=== PATIENT | male | born 1930 | race Caucasian/White ===

== ENCOUNTER 2019-04-08 16:18 | Inpatient (IN) | payer MEDICARE ==
[~2019-04-08] VITALS: Ht 177.8 cm; Wt 55.5 kg
--- NOTE | 2019-04-08 17:40 | NUR ---
URINE TO LAB
[2019-04-08 17:59] LABS: BASOPHILS 0.1 % (0-2); EOSINOPHILS 0 % (0-7); HEMATOCRIT 40.4 % (42.0-54.0); HEMOGLOBIN 12.9 g/dL (13.5-17.5); IMMATURE GRANULOCYTES 0.2 % (0-5); LYMPHOCYTES 6.6 % (15-50); MCH 32.3 pg (26.0-34.0); MCHC 31.9 g/dL (31.0-37.0); MCV 101.3 fL (80.0-100.0); MEAN PLATELET VOLUME 12.1 fL (7.4-10.4); MONOCYTES 8.4 % (2-11); NEUTROPHILS 84.7 % (40-80); PLATELET COUNT 166 10x3/uL (130-400); RBC 3.99 10x6/uL (4.20-6.10); WBC 11.1 10x3/uL (4.8-10.8)
[2019-04-08 18:09] LABS: CALC OSMOLALITY 286 mosm/kg (275-300); CALCIUM 8.8 mg/dL (8.5-10.1); CARBON DIOXIDE 31.6 mmol/L (21.0-32.0); CHLORIDE - SERUM 105 mmol/L (98-107); CREATININE - SERUM 0.9 mg/dL (0.6-1.3); GLUCOSE 138 mg/dL (74-106); INR 1.07 (0.85-1.17); POTASSIUM - SERUM 4.2 mmol/L (3.5-5.1); PROTIME 13.4 SECONDS (11.6-15.0); SODIUM 142 mmol/L (136-145); UREA NITROGEN 19 mg/dL (7-18); eGFR NON AFRICAN AMERICAN 85 mL/min (90-120)
[2019-04-08 18:15] LABS: ALBUMIN 3.2 g/dL (3.4-5.0); ALKALINE PHOSPHATASE 155 U/L (46-116); ALT (SGPT) 19 U/L (10-68); BILIRUBIN - TOTAL 0.35 mg/dL (0.2-1.3); PROTEIN - SERUM 6.2 g/dL (6.4-8.2)
[2019-04-08 18:28] LABS: APPEARANCE CLEAR (CLEAR); BILIRUBIN NEGATIVE (NEGATIVE); COLOR YELLOW (YELLOW); GLUCOSE NEGATIVE (NEGATIVE); KETONE NEGATIVE (NEGATIVE); NITRITE NEGATIVE (NEGATIVE); PROTEIN NEGATIVE (NEGATIVE); UROBILINOGEN NORMAL (NORMAL)
--- NOTE | 2019-04-08 19:10 | NUR ---
DR SANTILLAN NOTIFIED AND REVIEWED PATIENT'S BEHAVIOR AND ASSESSMENT RESULTS. PATIENT IS A LOW RISK PER DR SANTILLAN. INSTRUCTED TO GIVE RESOURCES AT TIME OF DISCHARGE. RESOURCES REVIEWED WITH PATIENT AND HE VERBALIZES UNDERSTANDING.
[2019-04-08 19:16] VITALS: BP 136/71
--- NOTE | 2019-04-08 19:37 | NUR ---
ARRIVED TO ROOM VIA HOSPITAL STAFF, ABLE TO VOICE NEEDS. DENIES ACUTE DISTRESS AT THIS TIME, BUT SHOWS S/S OF PAIN WITH FACIAL GRIMACING AND GRUNTING. UNABLE TO BARE WEIGHT ON RIGHT SIDE, WAS ABLE TO ANSWER MOST QUESTIONS. DID HAVE THOUGHTS OF DYING, STATING HE WOULD SOMETIMES HOLD HIS BREATH AND THEN "COME BACK ALIVE". THIS NURSE OFFERED SUPPORT, HE WAS CLEARED BY SUICIDE ASSESMENT IN ER TO BE SAFE IN ROOM BY SELF, HIS FAMILY CALLED AND HE CONVERSATED WITH DAUGHTER FOR ALMOST 20 MINUTES. HE WAS IN A PLEASANT MOOD. WHEN THIS NURSE INSTRUCTED HIM WE WOULD HAVE TO REMOVE PANTS HE FINALLY AGREED TO TAKE PAIN MEDICATION. WILL NOTE ANY CHANGE.
[2019-04-08] MEDS ORDERED: MELATONIN10 M1 PO (19:42)
--- NOTE | 2019-04-08 21:41 | NUR ---
REFUSING TELEMETRY AT THIS TIME. WILL ATTEMPT AGAIN LATER.
--- NOTE | 2019-04-08 22:42 | NUR ---
AT 2208, PT WAS STILL COMPLAINING OF PAIN RADIATING DOWN LEG AT REST, DR. SCHROEDER NOTIFIED WITH ORDER FOR DILAUDID PACKER AND CARRY OUT. ORDER ENGAGED. PT WAS INSTRUCTED ON PROPER USE OF PACKER AND CARRY OUT. WILL NOTE ANY CHANGE.
[2019-04-09] VITALS: BP 125/76
[2019-04-09 03:23] VITALS: BMI 17.5
--- NOTE | 2019-04-09 03:52 | NUR ---
CALLED TO ROOM, PT ASKED FOR A DRINK OF WATER, RE EDUCATED THIS PATIENT ON BEING NPO FOR SURGICAL REASONS, HE WAS OK WITH REASONING. HE THEN STATED HE WAS CONCERNED HE WOULD GET DEHYDRATED NOT DRINKING, THIS NURSE THEN REEDUCATED HIM ON HIS IV FLUIDS AND THEIR PURPOSE, HE THANKED ME AND FELT MORE AT EASE, HE ALSO SAID HE HAD PUNCHED HIS PAIN PUMP A FEW TIMES THIS SHIFT AND LONG HE DIDN'T MOVE HE WAS NOT IN ANY PAIN. THIS NURSE CONTINUES TO OFFER SUPPORT. WILL NOTE ANY CHANGE.
[2019-04-09 04:49] LABS: BASOPHILS 0.1 % (0-2); EOSINOPHILS 0.1 % (0-7); HEMATOCRIT 36.8 % (42.0-54.0); HEMOGLOBIN 11.5 g/dL (13.5-17.5); IMMATURE GRANULOCYTES 0.3 % (0-5); LYMPHOCYTES 11.1 % (15-50); MCH 31.8 pg (26.0-34.0); MCHC 31.3 g/dL (31.0-37.0); MCV 101.7 fL (80.0-100.0); MEAN PLATELET VOLUME 12.7 fL (7.4-10.4); MONOCYTES 11.5 % (2-11); NEUTROPHILS 76.9 % (40-80); PLATELET COUNT 165 10x3/uL (130-400); RBC 3.62 10x6/uL (4.20-6.10); RDW 15.1 % (11.5-14.5); WBC 10.2 10x3/uL (4.8-10.8)
[2019-04-09 05:17] LABS: CALC OSMOLALITY 284 mosm/kg (275-300); CALCIUM 8.5 mg/dL (8.5-10.1); CARBON DIOXIDE 29.4 mmol/L (21.0-32.0); CHLORIDE - SERUM 108 mmol/L (98-107); CREATININE - SERUM 0.8 mg/dL (0.6-1.3); GLUCOSE 102 mg/dL (74-106); MAGNESIUM - SERUM 1.9 mg/dL (1.8-2.4); PHOSPHOROUS 3.1 mg/dL (2.5-4.9); POTASSIUM - SERUM 4.7 mmol/L (3.5-5.1); SODIUM 142 mmol/L (136-145); UREA NITROGEN 19 mg/dL (7-18); eGFR NON AFRICAN AMERICAN > 90 mL/min (90-120)
--- NOTE | 2019-04-09 07:30 | NUR ---
PATIENT RECIEVED FROM PREVIOUS NURSE RESTING COMFORTABLY. PAIN RELIEVED WITH DILAUDID INSTRUMENT INSPECTOR. NPO FOR POSSIBLE OR TODAY FOR HIP FRACTURE. CL IN REACH
[2019-04-09 08:33] VITALS: Ht 177.8 cm; Wt 55.5 kg
[2019-04-09 09:21] VITALS: BP 133/66
[2019-04-09 12:16] VITALS: BP 162/81
[2019-04-09 16:20] LABS: % SATURATION 15 % (15-55); IRON 27 ug/dl (35-150); TOTAL IRON BIND CAPACITY 179 ug/dl (260-445); UNSAT IRON BIND CAPACITY 152 ug/dl (150-375)
[2019-04-09 17:09] VITALS: BP 140/68
[2019-04-09 21:36] VITALS: BP 130/79
[2019-04-09 23:30] LABS: COLOR YELLOW (YELLOW)
[2019-04-09 23:31] LABS: APPEARANCE CLEAR (CLEAR); BILIRUBIN NEGATIVE (NEGATIVE); GLUCOSE NEGATIVE (NEGATIVE); KETONE NEGATIVE (NEGATIVE); NITRITE NEGATIVE (NEGATIVE); PROTEIN NEGATIVE (NEGATIVE); UROBILINOGEN NORMAL (NORMAL)
[2019-04-09 23:32] LABS: BACTERIA FEW /hpf (NEGATIVE); EPITHELIAL CELLS 0-5 /hpf (0-5); RED CELLS - URINE NONE SEEN /hpf (0-5); WHITE CELLS - URINE 0-5 /hpf (NEGATIVE)
[2019-04-10 01:03] VITALS: BP 164/83
--- NOTE | 2019-04-10 01:30 | NUR ---
I have reviewed this patient and I concur with the Shift Assessment completed by the Licensed Practical Nurse today this shift.
[2019-04-10 04:54] LABS: ANION GAP 6.7 mmol/L (8-16); CALCIUM 7.9 mg/dL (8.5-10.1); CARBON DIOXIDE 31.1 mmol/L (21.0-32.0); MAGNESIUM - SERUM 1.6 mg/dL (1.8-2.4); PHOSPHOROUS 2.5 mg/dL (2.5-4.9)
[2019-04-10 05:02] LABS: BASOPHILS 0.1 % (0-2); EOSINOPHILS 0.5 % (0-7); HEMATOCRIT 32.5 % (42.0-54.0); HEMOGLOBIN 10.1 g/dL (13.5-17.5); IMMATURE GRANULOCYTES 0.3 % (0-5); MCH 32.1 pg (26.0-34.0); MCHC 31.1 g/dL (31.0-37.0); MCV 103.2 fL (80.0-100.0); MEAN PLATELET VOLUME 12.7 fL (7.4-10.4); MONOCYTES 11.4 % (2-11); NEUTROPHILS 79.7 % (40-80); PLATELET COUNT 134 10x3/uL (130-400); RBC 3.15 10x6/uL (4.20-6.10); RDW 15.2 % (11.5-14.5); WBC 8.6 10x3/uL (4.8-10.8)
[2019-04-10 05:06] LABS: CREATININE - SERUM 1.1 mg/dL (0.6-1.3); POTASSIUM - SERUM 3.8 mmol/L (3.5-5.1)
[2019-04-10 05:16] VITALS: BP 138/74
--- NOTE | 2019-04-10 07:58 | NUR ---
PATIENT RECIEVED FROM PREVIOUS NURSE RESTING WITH EYES CLOSED, AROUSED EASILY AND PRE-OP MEDICATIONS GIVEN FOR GAMMA NAIL PROCEDURE TO RIGHT HIP THIS AM. PATIENT REPORTS PAIN WITH MOVEMENT. CL IN REACH
[2019-04-10 11:35] VITALS: BP 172/89
--- NOTE | 2019-04-10 11:48 | NUR ---
OT NOTE: PT SCHEDULED FOR SURGERY TODAY. WILL COMPLETE OT EVAL FOLLOWING SURGERY. WAYLON SAMANIEGO, OTR/L
[2019-04-10 12:47] VITALS: BP 172/89
[2019-04-10 16:53] VITALS: BP 166/97
[2019-04-10 21:16] VITALS: BP 138/85
--- NOTE | 2019-04-11 02:52 | NUR ---
I have reviewed this patient and I concur with the Shift Assessment completed by the Licensed Practical Nurse today this shift.
[2019-04-11 04:37] VITALS: BP 154/63
[2019-04-11 06:34] LABS: CALC OSMOLALITY 284 mosm/kg (275-300); CALCIUM 8.2 mg/dL (8.5-10.1); CHLORIDE - SERUM 108 mmol/L (98-107); GLUCOSE 95 mg/dL (74-106); MAGNESIUM - SERUM 1.7 mg/dL (1.8-2.4); POTASSIUM - SERUM 4.3 mmol/L (3.5-5.1); SODIUM 141 mmol/L (136-145); UREA NITROGEN 24 mg/dL (7-18); eGFR NON AFRICAN AMERICAN 75 mL/min (90-120)
[2019-04-11 06:35] LABS: PHOSPHOROUS 3.6 mg/dL (2.5-4.9)
--- NOTE | 2019-04-11 07:05 | NUR ---
RESTING IN BED, ALERT AND ORIENTED X2. POD #1 GAMMA NAILING TO RIGHT HIP, DRESSING C/D/I. NO C/O PAIN. NO S/S OF ACUTE DISTRESS NOTED. ON 2L O2, NC. IV TO RIGHT FOREARM, NS INFUSING @ 75ML/HR. SITE PATENT WITHOUT REDNESS OR SWELLING. TELEMETRY SR 83 WITH FREQUENT PVCS. ON ELECTROLYTE PROTOCOL, MAGNESIUM 1.7, GIVEN 1ST DOSE ON PRIOR SHIFT THIS AM. DENIES ANY NEEDS AT THIS TIME. CALL LIGHT IN REACH. WILL CONTINUE TO MONITOR.
[2019-04-11 07:19] LABS: BASOPHILS 0 % (0-2); EOSINOPHILS 0 % (0-7); HEMATOCRIT 29.6 % (42.0-54.0); HEMOGLOBIN 9.4 g/dL (13.5-17.5); IMMATURE GRANULOCYTES 0.2 % (0-5); LYMPHOCYTES 7.7 % (15-50); MCH 32.3 pg (26.0-34.0); MCHC 31.8 g/dL (31.0-37.0); MCV 101.7 fL (80.0-100.0); MEAN PLATELET VOLUME 13.1 fL (7.4-10.4); NEUTROPHILS 82.1 % (40-80); PLATELET COUNT 142 10x3/uL (130-400); RBC 2.91 10x6/uL (4.20-6.10); RDW 14.9 % (11.5-14.5)
[2019-04-11 07:20] LABS: WBC 11.8 10x3/uL (4.8-10.8)
[2019-04-11 08:55] VITALS: BP 146/71
[2019-04-11 12:04] VITALS: BP 114/60
--- NOTE | 2019-04-11 12:45 | NUR ---
rehab prescreen: this pt would make a good canidate for IRF. he is currently pod#1 so will need a few days before transfer and will need to progress with therapy some to see the level of therapy he is at currently. will monitor his progress and begin the process of tranfering when pt is ready. pt has medicare insurance so wont be a problem to transfer when stable. thank you for this eval. sagar al lpn clinical liasion
[2019-04-11 16:08] VITALS: BP 131/65
--- NOTE | 2019-04-11 18:33 | NUR ---
RESTING IN BED, EYES OPEN. NO C/O PAIN. NO S/S OF ACUTE DISTRESS NOTED. DENIES ANY NEEDS AT THIS TIME. CALL LIGHT IN REACH. MARIE ALARM ON. WILL CONTINUE TO MONITOR.
[2019-04-11 19:30] VITALS: BP 116/78
--- NOTE | 2019-04-11 20:02 | NUR ---
I have reviewed this patient and I concur with the Shift Assessment completed by the Licensed Practical Nurse today this shift.
--- NOTE | 2019-04-11 20:42 | NUR ---
Awake,alert.no complaints voiced. Iv to RFA intact without redness or edema noted. drsg to right hip intact without drainage. turned an positioned for comfort. cl in reach. fall precautions in place.
[2019-04-12 00:30] VITALS: BP 147/66
--- NOTE | 2019-04-12 03:26 | NUR ---
I have reviewed this patient and I concur with the Shift Assessment completed by the Licensed Practical Nurse today this shift.
[2019-04-12 04:30] VITALS: BP 138/72
[2019-04-12 06:10] LABS: BASOPHILS 0.1 % (0-2); EOSINOPHILS 0.4 % (0-7); HEMATOCRIT 25.1 % (42.0-54.0); IMMATURE GRANULOCYTES 0.3 % (0-5); LYMPHOCYTES 9.6 % (15-50); MCHC 31.9 g/dL (31.0-37.0); MCV 100.4 fL (80.0-100.0); MEAN PLATELET VOLUME 12.4 fL (7.4-10.4); MONOCYTES 9.3 % (2-11); NEUTROPHILS 80.3 % (40-80); PLATELET COUNT 138 10x3/uL (130-400); WBC 10.8 10x3/uL (4.8-10.8)
[2019-04-12 06:36] LABS: CALC OSMOLALITY 285 mosm/kg (275-300); CALCIUM 8.1 mg/dL (8.5-10.1); CARBON DIOXIDE 26.1 mmol/L (21.0-32.0); CHLORIDE - SERUM 109 mmol/L (98-107); CREATININE - SERUM 0.8 mg/dL (0.6-1.3); GLUCOSE 95 mg/dL (74-106); MAGNESIUM - SERUM 1.9 mg/dL (1.8-2.4); PHOSPHOROUS 2.4 mg/dL (2.5-4.9); POTASSIUM - SERUM 4.4 mmol/L (3.5-5.1); SODIUM 140 mmol/L (136-145); UREA NITROGEN 31 mg/dL (7-18); eGFR NON AFRICAN AMERICAN > 90 mL/min (90-120)
--- NOTE | 2019-04-12 07:15 | NUR ---
pt resting in bed. resp even and unlabored. o2 @ 3l nc in place. denies pain at this time. iv to right forearm with 1/2 ns @ 75ml/hr infusing via pump. site without redness or edema. dressing to right hip intact. pt quiet, denies further needs at this time. cl within reach. encouraged to call with needs. continue poc
[2019-04-12 07:59] VITALS: BP 152/65
[2019-04-12 12:07] VITALS: BP 124/57
--- NOTE | 2019-04-12 14:54 | NUR ---
PT WALKED ON 4L/M N CANNULA PER DR RUEDA. PT IS GOING HOME
[2019-04-12 16:17] VITALS: BP 135/59
[2019-04-12 20:01] VITALS: BP 148/79
--- NOTE | 2019-04-12 20:40 | NUR ---
ALERT.ORIENTED.NO DISTRESS NOTED. O2 @ 4L PER NC ON. RESP UNLAOBRED. DRESSING INTACT TO RIGHT HIP WITHOUT DRAINAGE NOTED. IV TO LFA INTACT WITHOUT REDNESS OR EDEMA NOTED.TURNED AND POSITIONED FOR COMFORT. CL IN REACH. FALL PRECAUTIONS IN PLACE.
[2019-04-13 00:30] VITALS: BP 153/64
--- NOTE | 2019-04-13 02:46 | NUR ---
I have reviewed this patient and I concur with the Shift Assessment completed by the Licensed Practical Nurse today this shift.
[2019-04-13 05:00] VITALS: BP 162/70
[2019-04-13 06:18] LABS: CALC OSMOLALITY 286 mosm/kg (275-300); CALCIUM 8.2 mg/dL (8.5-10.1); CARBON DIOXIDE 25.9 mmol/L (21.0-32.0); CHLORIDE - SERUM 109 mmol/L (98-107); CREATININE - SERUM 0.7 mg/dL (0.6-1.3); GLUCOSE 83 mg/dL (74-106); MAGNESIUM - SERUM 1.8 mg/dL (1.8-2.4); PHOSPHOROUS 2.2 mg/dL (2.5-4.9); POTASSIUM - SERUM 3.9 mmol/L (3.5-5.1); SODIUM 142 mmol/L (136-145); UREA NITROGEN 27 mg/dL (7-18); eGFR NON AFRICAN AMERICAN > 90 mL/min (90-120)
[2019-04-13 06:40] LABS: BASOPHILS 0.1 % (0-2); IMMATURE GRANULOCYTES 0.2 % (0-5); LYMPHOCYTES 7.9 % (15-50); MCH 29.8 pg (26.0-34.0); MCHC 32.2 g/dL (31.0-37.0); MONOCYTES 9.7 % (2-11); NEUTROPHILS 81.1 % (40-80); PLATELET COUNT 121 10x3/uL (130-400); WBC 9.3 10x3/uL (4.8-10.8)
[2019-04-13 06:43] LABS: HEMATOCRIT 34.2 % (42.0-54.0); RBC 3.69 10x6/uL (4.20-6.10)
[2019-04-13 06:44] LABS: MCV 92.7 fL (80.0-100.0)
[2019-04-13 08:31] LABS: PLATELET ESTIMATE NORMAL
[2019-04-13 08:32] LABS: ANISOCYTOSIS 1+; POLYCHROMASIA OCC; ROULEAUX OCC
[2019-04-13 08:33] VITALS: BP 151/83
--- NOTE | 2019-04-13 09:21 | NUR ---
PATIENT RECIEVED FROM PREVIOUS NURSE RESTING IN BED WITH PAIN TO RIGHT HIP, DRESSING C/D/I. IV PATENT WITH 1/2 NS INFUSING AT 30ML/HR TO LEFT FA. CL IN REACH.
--- NOTE | 2019-04-13 09:28 | CN ---
PATIENT NAME:MELIDA DIAZ MEDICAL RECORD: [id number] : 34 LOCATION:D.MS [id number] ADMIT DATE: 04/08/19 ACCOUNT: [id number] CONSULTING PHYSICIAN: SAL BROOKE MD REFERRING PHYSICIAN: WANDA CRUZ MD DATE OF CONSULTATION: 04/09/2019 DIAGNOSES: 1. Palpitations. 2. Shortness of breath, dyspnea on exertion. 3. Preoperative evaluation hip surgery. 4. Traumatic hip fracture. 5. Atrial fibrillation. 6. Dysrhythmia -- PVCs. HISTORY OF PRESENT ILLNESS: Mr. Diaz presents to the hospital with a hip fracture, was found to be in atrial fibrillation. He is not on any medications other than vitamins and he has not seen a doctor as long as he can remember. He has noticed palpitation, shortness of breath for the past 4 years. He has not had any chest pain or chest discomfort. He is found to be in atrial fibrillation. He does feel his heart racing with any exertion and then he gets shortness of breath after that. His heart rate has been in the 70s-90s. Here, he does have PVCs on vital check. It has been in the 50s, most likely this is secondary to the PVCs not being counted. He is willing to take a cardiac medication if it can help the palpitations. PHYSICAL EXAMINATION: CONSTITUTIONAL/GENERAL APPEARANCE: Well nourished, well developed, appears stated age. EYES: Lids and conjunctivae noninjected. No discharge. No pallor. ENT: Lips within normal limit. No cyanosis. No pallor. NECK: Carotid arteries, bilateral normal upstroke. No bruits. No thrills. No jugular venous pressure or distention. CERVICAL LYMPH NODES: Nontender. Nonenlarged. THYROID: Not enlarged. No nodules. CARDIOVASCULAR: Precordial exam, nondisplaced. No heaves or pericardial thrills. Rate and rhythm, regular. Heart sounds, normal S1, normal S2. No S3, no gallop, no rub. Systolic murmur, not heard. Diastolic murmur, not heard. RESPIRATORY: Respiratory effort, unlabored. Normal curvature. No thoracic deformity. No chest wall tenderness. Percussion, resonant. Auscultation, clear. No wheezes, no rales, no rhonchi. ABDOMEN: Soft, nondistended, nontender. No abdominal pain, no vomiting and normal appetite. MUSCULOSKELETAL: No joint tenderness, normal gait, normal tone. SKIN: Warm and dry. OVERALL IMPRESSION: Atrial fibrillation. At this time, we will start him on sotalol 40 mg b.i.d., get an echocardiogram. Hopefully, he will agree to continue the sotalol after the surgery, may proceed with surgery tomorrow for the hip fracture. We will follow after the surgery for rate control, doubt he will agree to anticoagulation after the surgery. TRANSINT:[id number] Voice Confirmation ID: [id number] DOCUMENT ID: [id number] CONSULT REPORT [id number] MELIDA DIAZ, SAL WILKINS at 0928 CC: [id number] DICTATION DATE: 04/09/19 1211 MACHINIST INSTRUCTOR: 04/09/19 1223 ADM IN [place] [id number] [place] [id number]
--- NOTE | 2019-04-13 09:28 | EC ---
PATIENT:MELIDA RAMOS DATE OF SERVICE: 04/08/19 SEX: M MEDICAL RECORD: [id number] DATE OF : 34 LOCATION:D.MS Kim AGE OF PATIENT: 89 ADMISSION DATE: 04/08/19 REFERRING PHYSICIAN: INTERPRETING PHYSICIAN: SAL DOUGLAS MD ECHOCARDIOGRAM REPORT ECHO CHARGES 5 ECHO LIMITED Date: 04/09/19 CLINICAL DIAGNOSIS: ATRIAL FIB R HIP FRACTURE ECHOCARDIOGRAPHIC MEASUREMENTS (adult normal given) AC root (d.<3.7cm) cm LV Septum d (<1.2 cm> cm Valve Excursion cm LV Septum (systole) cm Left Atria (s.<4.0cm> 4.0 cm LVPW d(<1.2cm) cm RV (d.<2.3cm) cm LVPW (sytole) cm LV diastole(<5.6CM) 4.9 cm MV E-F(>70mm/sec) cm LV systole 3.2 cm LVOT Diameter cm MV exc.(>10mm) cm Est.ejection fraction (50-75%) % DOPPLER: LVIT cm/sec A cm/sec E cm/sec LA cm/sec RVSP 18 mmHg LVOT cm/sec AOP1/2T m/s Asc. Ao cm/sec RVOT cm/sec RA cm/sec PA cm/sec AV Gradient Peak mmHg AV Mean mmHg AV Area cm MV Gradient Peak mmHg MV Mean mmHg MV Area cm COMMENTS: Manager Of Organizational Development: Sushila [employer] Lamination Machine Operator: Igor Douglas TAPE# PACS Pericardial Effusion N DATE OF SERVICE: 04/09/2019 PROCEDURE: Echocardiogram. FINDINGS: 1. Left ventricular chamber size is within normal limits. Left ventricular systolic function is normal at 55% to 60%. 2. Left atrium is upper limits of normal at 4.0 cm. Right atrium and right ventricular chamber sizes are within normal limits. 3. Valvular structures have normal structure and motion. ECHOCARDIOGRAM REPORT [id number] MELIDA RAMOS 4. Doppler interrogation reveals only [id number] mitral regurgitation, no other valvular insufficiency or stenosis. Pulmonary systolic pressure is estimated at 18 mmHg. 5. No evidence of pericardial effusion or left ventricular thrombus. 6. The patient is in atrial fibrillation during the study. TRANSINT:[id number] Voice Confirmation ID: [id number] DOCUMENT ID: [id number] SAL DOUGLAS MD at 0928 CC: [id number] DICTATION DATE: 04/09/19 1506 CENTRAL SUPPLY TECHNICIAN: 04/09/19 1635 ADM IN [place] [id number] [place] [id number]
[2019-04-13] MEDS ORDERED: ELIQUIS2.5 MG PO (10:11)
[2019-04-13] MEDS ORDERED: HYDROCODON-ACE1 EA10 PO (10:12)
[2019-04-13] MEDS ORDERED: BETAPACE 80 MG80 MG PO (10:33)
[2019-04-13] MEDS ORDERED: COLACE100 MG PO (10:33)
--- NOTE | 2019-04-13 10:48 | MORECARE ---
CASE MANAGEMENT DISCHARGE SUMMARY PATIENT: MELIDA RAMOS UNIT: [id number] ADM DATE: 04/08/19 AGE: 89 : 32 SEX: M ROOM/BED: D.2207 AUTHOR: RAUL,DOC PHYSICIAN: REFERRING PHYSICIAN: WANDA CRUZ MD DATE OF SERVICE: 04/13/19 Discharge Plan Patient Name: MELIDA RAMOS Facility: [facility]:[place] : 1930 Planned Disposition: Residential Facility Anticipated Discharge Date: Discharge Date: Expected LOS: Initial Reviewer: [email or web address] Initial Review Date: 04/08/2019 Generated: 04/13/19 11:47 am Comments DCP- Discharge Planning Updated by [email or web address]: Cristina Espinosa on 04/12/19 9:[address] CM TO THE BEDSIDE THIS AM. THE PATIENT WAS RECEIVING HIS AM CARE. CM TO F/U TO COMPLEE ASSESSMENT. DCP- Discharge Planning Updated by [email or web address]: Cristina Espinosa on 04/11/19 5:[address] LATE ENTRY 1730 PATIENT'S DAUGHTER, JUSTO SHAH, CALLED AND STATED THE PATIENT AND HIS FAMILY WOULD LIKE REHAB AT [facility]. THIS IS CLOSER FOR THE FAMILY AND FRIENDS OF THE PATIENT. SHE STATED THE PATIENT WANTS VERY MUCH TO GO TO THIS FACILITY. CM WILL FOLLOWUP IN THE AM. JUSTO SHAH- DAUGHTER- [phone]. THE PATIENT HAD HIS PHYSICAL THERAPY EVAL AND FIRST PHYSICAL THERAPY THIS AFTERNOON. DCPIA - Discharge Planning Initial Assessment Updated by [email or web address]: Cora Schaefer on 04/13/19 10:45 am * Is the patient Alert and Oriented? Yes * How many steps to enter\exit or inside your home? * PCP UNKNOWN * Pharmacy [facility] * Preadmission Environment Home Alone * ADLs Independent * Equipment Rolling Walker Walker Wheelchair * List name and contact numbers for known caregivers / representatives who currently or will assist patient after discharge: JUSTO MONTERO [phone] * Verbal permission to speak to the caregivers and representatives has been obtained from the patient. N/A * Community resources currently utilized None * Additional services required to return to the preadmission environment? Yes * Can the patient safely return to the preadmission environment? No * Has this patient been hospitalized within the prior 30 days at any hospital? No Patient Name: MELIDA RAMOS Page [phone] at 1048 All edits/amendments must be made on the electronic document DICTATION DATE: 04/13/191046 MAGAZINE EDITOR: JUNI 04/13/197 RPT#: [id number] DC DATE: STATUS: ADM IN [facility] [address] [place] [address] END OF REPORT
--- NOTE | 2019-04-13 10:55 | MORECARE ---
CASE MANAGEMENT DISCHARGE SUMMARY PATIENT: MELIDA RAMOS UNIT: [id number] ADM DATE: 04/08/19 AGE: 89 : 32 SEX: M ROOM/BED: D.2207 AUTHOR: RALU,DOC PHYSICIAN: REFERRING PHYSICIAN: WANDA CRUZ MD DATE OF SERVICE: 04/13/19 Discharge Plan Patient Name: MELIDA RAMOS Facility: [facility]:[place] : 1930 Planned Disposition: Halfway Facility Anticipated Discharge Date: Discharge Date: Expected LOS: Initial Reviewer: [email or web address] Initial Review Date: 04/08/2019 Generated: 04/13/19 11:54 am Comments DCP- Discharge Planning Updated by [email or web address]: Cora Schaefer on 04/13/19 9:[address] PATIENT WILL BE DISCHARGING TO A SKILLED BED DCP- Discharge Planning Updated by [email or web address]: Cora Schaefer on 04/13/19 9:[address] Patient Name: MELIDA RAMOS Admission Status: ER Accout number: [id number] Admission Date: 04-08-2019 : 1930 Admission Diagnosis: Attending: WANDA CRUZ Current LOS: 5 Anticipated DC Date: Planned Disposition: Halfway Facility Primary Insurance: MEDICARE A & B Discharge Planning Comments: CM MET WITH PATIENT AFTER HEARING FROM [facility] AT [facility]. PATIENT STATED THAT HE LIVED HOME ALONE WHERE HE WAS INDEPENDNET WITH HIS CARE. HE HAS 3 STEPS TO ENTER IN HIS HOME. HE COULD NOT REMEMBER HIS MD AT HOME. HE HAS A WALKER AND A WHEELCHAIR, BUT DID NOT NEED OR USE EITHER OF THEM. HE WOULD LIKE TO GO TO [facility] TODAY. DANITZA SIGNED AND PLACED IN CHART. IMM SERVED AND EXPLAINED. THEY WILL ACCEPT THE PATIENT TODAY AND PICK HIM UP AT 12:00-12.:30. I CALLED HIS DAUGHTER JUSTO TO LET HER KNOW. CM TO FOLLOW AND ASSIST NEEDED Mate Relief: Cora Schaefer DCP- Discharge Planning Updated by [id number]: Cristina Espinosa on 04/12/19 9:[address] CM TO THE BEDSIDE THIS AM. THE PATIENT WAS RECEIVING HIS AM CARE. CM TO F/U TO COMPLEE ASSESSMENT. DCP- Discharge Planning Updated by [email or web address]: Cristinarose Espinosa on 04/11/19 5:[address] LATE ENTRY 1730 PATIENT'S DAUGHTER, JUSTO SHAH, CALLED AND STATED THE PATIENT AND HIS FAMILY WOULD LIKE REHAB AT [facility]. THIS IS CLOSER FOR THE FAMILY AND FRIENDS OF THE PATIENT. SHE STATED THE PATIENT WANTS VERY MUCH TO GO TO THIS FACILITY. CM WILL FOLLOWUP IN THE AM. JUSTO SHAH- DAUGHTER- [phone]. THE PATIENT HAD HIS PHYSICAL THERAPY EVAL AND FIRST PHYSICAL THERAPY THIS AFTERNOON. DCPIA - Discharge Planning Initial Assessment Updated by [id number]: Cora Schaefer on 04/13/19 10:45 am * Is the patient Alert and Oriented? Yes * How many steps to enter\exit or inside your home? * PCP UNKNOWN * Pharmacy [facility] * Preadmission Environment Home Alone * ADLs Independent * Equipment Rolling Walker Walker Wheelchair * List name and contact numbers for known caregivers / representatives who currently or will assist patient after discharge: JUSTO MONTERO [phone] * Verbal permission to speak to the caregivers and representatives has been obtained from the patient. N/A * Community resources currently utilized None * Additional services required to return to the preadmission environment? Yes * Can the patient safely return to the preadmission environment? No * Has this patient been hospitalized within the prior 30 days at any hospital? No Coverage Notice Reviewer: [email or web address] Josr Schaefer Notice Issued Date-Time: 04/13/2019 10:14 Notice Type: IM Discharge Notice Notice Delivered To: Patient Relationship to Patient: Plastic Joint Maker Name: Delivery Method: HAND - Hand Delivered Denisa Days: Prior Verbal Notification: Recipient Understood Notice: Yes Recipient Signature: Yes Med Rec Note Co-signed by Attending: Coverage Notice Comment: Reviewer: [email or web address] Josr Schaefer Notice Issued Date-Time: 04/13/2019 10:14 Notice Type: Patient Choice Letter Notice Delivered To: Patient Relationship to Patient: Plastic Joint Maker Name: Delivery Method: HAND - Hand Delivered Denisa Days: Prior Verbal Notification: Recipient Understood Notice: Yes Recipient Signature: Yes Med Rec Note Co-signed by Attending: Coverage Notice Comment: DANITZA FOR [facility] Last DP export: 04/13/19 9:48 Patient Name: MELIDA RAMOS Page [phone] at 1055 All edits/amendments must be made on the electronic document DICTATION DATE: 04/13/191053 GEAR NICKER: JUNI 04/13/191053 RPT#: [id number] DC DATE: STATUS: ADM IN [facility] [address] [place] [address] END OF REPORT
--- NOTE | 2019-04-13 11:03 | MORECARE ---
CASE MANAGEMENT DISCHARGE SUMMARY PATIENT: MELIDA RAMOS UNIT: [id number] ADM DATE: 04/08/19 AGE: 89 : 32 SEX: M ROOM/BED: D.2207 AUTHOR: RAUL,DOC PHYSICIAN: REFERRING PHYSICIAN: WANDA CRUZ MD DATE OF SERVICE: 04/13/19 Discharge Plan Patient Name: MELIDA RAMOS Facility: [facility]:[place] : 1930 Planned Disposition: Mcfp Facility Anticipated Discharge Date: Discharge Date: Expected LOS: Initial Reviewer: [email or web address] Initial Review Date: 04/08/2019 Generated: 04/13/19 12:02 pm DCP- Discharge Planning Updated by [email or web address]: Cora Schaefer on 04/13/19 9:[address] PATIENT WILL BE DISCHARGING TO A SKILLED BED DCP- Discharge Planning Updated by [id number]: Cora Schaefer on 04/13/19 9:[address] Patient Name: MELIDA RAMOS Admission Status: ER Accout number: [id number] Admission Date: 04-08-2019 : 1930 Admission Diagnosis: Attending: WANDA CRUZ Current LOS: 5 Anticipated DC Date: Planned Disposition: Mcfp Facility Primary Insurance: MEDICARE A & B Discharge Planning Comments: CM MET WITH PATIENT AFTER HEARING FROM [facility] AT [facility]. PATIENT STATED THAT HE LIVED HOME ALONE WHERE HE WAS INDEPENDNET WITH HIS CARE. HE HAS 3 STEPS TO ENTER IN HIS HOME. HE COULD NOT REMEMBER HIS MD AT HOME. HE HAS A WALKER AND A WHEELCHAIR, BUT DID NOT NEED OR USE EITHER OF THEM. HE WOULD LIKE TO GO TO [facility] TODAY. DANITZA SIGNED AND PLACED IN CHART. IMM SERVED AND EXPLAINED. THEY WILL ACCEPT THE PATIENT TODAY AND PICK HIM UP AT 12:00-12.:30. I CALLED HIS DAUGHTER JUSTO TO LET HER KNOW. CM TO FOLLOW AND ASSIST NEEDED Sole Cementer: Cora Schaefer DCP- Discharge Planning Updated by [email or web address]: Cristina Espinosa on 04/12/19 9:[address] CM TO THE BEDSIDE THIS AM. THE PATIENT WAS RECEIVING HIS AM CARE. CM TO F/U TO COMPLEE ASSESSMENT. DCP- Discharge Planning Updated by [email or web address]: Cristinarose Espinosa on 04/11/19 5:[address] LATE ENTRY 1730 PATIENT'S DAUGHTER, JUSTO SHAH, CALLED AND STATED THE PATIENT AND HIS FAMILY WOULD LIKE REHAB AT [facility]. THIS IS CLOSER FOR THE FAMILY AND FRIENDS OF THE PATIENT. SHE STATED THE PATIENT WANTS VERY MUCH TO GO TO THIS FACILITY. CM WILL FOLLOWUP IN THE AM. JUSTO SHAH- DAUGHTER- [phone]. THE PATIENT HAD HIS PHYSICAL THERAPY EVAL AND FIRST PHYSICAL THERAPY THIS AFTERNOON. DCPIA - Discharge Planning Initial Assessment Updated by [email or web address]: Cora Schaefer on 04/13/19 10:45 am * Is the patient Alert and Oriented? Yes * How many steps to enter\exit or inside your home? * PCP UNKNOWN * Pharmacy [facility] * Preadmission Environment Home Alone * ADLs Independent * Equipment Rolling Walker Walker Wheelchair * List name and contact numbers for known caregivers / representatives who currently or will assist patient after discharge: JUSTO MONTERO [phone] * Verbal permission to speak to the caregivers and representatives has been obtained from the patient. N/A * Community resources currently utilized None * Additional services required to return to the preadmission environment? Yes * Can the patient safely return to the preadmission environment? No * Has this patient been hospitalized within the prior 30 days at any hospital? No External Providers External Provider: [facility] Next Contact Date: Service Request Date: Service Type: Resolution: Reviewer: Comments: Coverage Notice Reviewer: [email or web address] Josr Schaefer Notice Issued Date-Time: 04/13/2019 10:14 Notice Type: IM Discharge Notice Notice Delivered To: Patient Relationship to Patient: Payment Manager Name: Delivery Method: HAND - Hand Delivered Denisa Days: Prior Verbal Notification: Recipient Understood Notice: Yes Recipient Signature: Yes Med Rec Note Co-signed by Attending: Coverage Notice Comment: Reviewer: [email or web address] Josr Schaefer Notice Issued Date-Time: 04/13/2019 10:14 Notice Type: Patient Choice Letter Notice Delivered To: Patient Relationship to Patient: Payment Manager Name: Delivery Method: HAND - Hand Delivered Denisa Days: Prior Verbal Notification: Recipient Understood Notice: Yes Recipient Signature: Yes Med Rec Note Co-signed by Attending: Coverage Notice Comment: DANITAZ FOR [facility] Last DP export: 04/13/19 9:55 Patient Name: MELIDA RAMOS Page [phone] at 1103 All edits/amendments must be made on the electronic document DICTATION DATE: 04/13/191101 PEARL MAKER: JUNI 04/13/191101 RPT#: [id number] DC DATE: STATUS: ADM IN [facility] [address] [place] [address] END OF REPORT
--- NOTE | 2019-04-13 12:40 | NUR ---
DRESSING CHANGED TO RIGHT HIP WITH NO S/S OF INFECTION NOTED. NORCO GIVEN FOR HIP PAIN
--- NOTE | 2019-04-13 13:17 | NUR ---
REPORT CALLED TO RANDOLPH AT [facility]
--- NOTE | 2019-04-16 11:01 | MORECARE ---
CASE MANAGEMENT DISCHARGE SUMMARY PATIENT: MELIDA RAMOS UNIT: [id number] ADM DATE: 04/08/19 AGE: 89 : 34 SEX: M ROOM/BED: D.2207 AUTHOR: RAUL,DOC PHYSICIAN: REFERRING PHYSICIAN: WANDA CRUZ MD DATE OF SERVICE: 04/16/19 Discharge Plan Patient Name: MELIDA RAMOS Facility: [facility]:[place] : 1930 Planned Disposition: Jail Facility Anticipated Discharge Date: Discharge Date: 04/13/2019 Expected LOS: 0 Initial Reviewer: [email or web address] Initial Review Date: 04/08/2019 Generated: 04/16/19 12:00 pm DCP- Discharge Planning Updated by [email or web address]: Cora Schaefer on 04/13/19 9:[address] PATIENT WILL BE DISCHARGING TO A SKILLED BED DCP- Discharge Planning Updated by [email or web address]: Cora Schaefer on 04/13/19 9:[address] Patient Name: MELIDA RAMOS Admission Status: ER Accout number: [id number] Admission Date: 04-08-2019 : 1930 Admission Diagnosis: Attending: WANDA CRUZ Current LOS: 5 Anticipated DC Date: Planned Disposition: Jail Facility Primary Insurance: MEDICARE A & B Discharge Planning Comments: CM MET WITH PATIENT AFTER HEARING FROM [place] [facility]. PATIENT STATED THAT HE LIVED HOME ALONE WHERE HE WAS INDEPENDNET WITH HIS CARE. HE HAS 3 STEPS TO ENTER IN HIS HOME. HE COULD NOT REMEMBER HIS MD AT HOME. HE HAS A WALKER AND A WHEELCHAIR, BUT DID NOT NEED OR USE EITHER OF THEM. HE WOULD LIKE TO GO TO [facility] TODAY. DANITZA SIGNED AND PLACED IN CHART. IMM SERVED AND EXPLAINED. THEY WILL ACCEPT THE PATIENT TODAY AND PICK HIM UP AT 12:00-12.:30. I CALLED HIS DAUGHTER JUSTO TO LET HER KNOW. CM TO FOLLOW AND ASSIST NEEDED Ebd Teacher: Cora Schaefer DCP- Discharge Planning Updated by [email or web address]: Cristina Espinosa on 04/12/19 9:[address] CM TO THE BEDSIDE THIS AM. THE PATIENT WAS RECEIVING HIS AM CARE. CM TO F/U TO COMPLEE ASSESSMENT. DCP- Discharge Planning Updated by [email or web address]: Cristinarose Espinosa on 04/11/19 5:[address] LATE ENTRY 1730 PATIENT'S DAUGHTER, JUSTO SHAH, CALLED AND STATED THE PATIENT AND HIS FAMILY WOULD LIKE REHAB AT [facility]. THIS IS CLOSER FOR THE FAMILY AND FRIENDS OF THE PATIENT. SHE STATED THE PATIENT WANTS VERY MUCH TO GO TO THIS FACILITY. CM WILL FOLLOWUP IN THE AM. JUSTO SHAH- DAUGHTER- [phone]. THE PATIENT HAD HIS PHYSICAL THERAPY EVAL AND FIRST PHYSICAL THERAPY THIS AFTERNOON. DCPIA - Discharge Planning Initial Assessment Updated by [email or web address]: Cora Schaefer on 04/13/19 10:45 am * Is the patient Alert and Oriented? Yes * How many steps to enter\exit or inside your home? * PCP UNKNOWN * Pharmacy [facility] * Preadmission Environment Home Alone * ADLs Independent * Equipment Rolling Walker Walker Wheelchair * List name and contact numbers for known caregivers / representatives who currently or will assist patient after discharge: JUSTO MONTERO [phone] * Verbal permission to speak to the caregivers and representatives has been obtained from the patient. N/A * Community resources currently utilized None * Additional services required to return to the preadmission environment? Yes * Can the patient safely return to the preadmission environment? No * Has this patient been hospitalized within the prior 30 days at any hospital? No Coverage Notice Reviewer: [email or web address] Josr Schaefer Notice Issued Date-Time: 04/13/2019 10:14 Notice Type: IM Discharge Notice Notice Delivered To: Patient Relationship to Patient: Frame And Scrap Crusher Name: Delivery Method: HAND - Hand Delivered Denisa Days: Prior Verbal Notification: Recipient Understood Notice: Yes Recipient Signature: Yes Med Rec Note Co-signed by Attending: Coverage Notice Comment: Reviewer: [email or web address] Josr Schaefer Notice Issued Date-Time: 04/13/2019 10:14 Notice Type: Patient Choice Letter Notice Delivered To: Patient Relationship to Patient: Frame And Scrap Crusher Name: Delivery Method: HAND - Hand Delivered Denisa Days: Prior Verbal Notification: Recipient Understood Notice: Yes Recipient Signature: Yes Med Rec Note Co-signed by Attending: Coverage Notice Comment: [facility] FOR [facility] Last DP export: 04/13/19 10:03 Patient Name: RACHEL, MELIDA Page [id number] at 1101 All edits/amendments must be made on the electronic document DICTATION DATE: 04/16/19 1100 EMPLOYEE RELATIONS ADMINISTRATOR: JUNI 04/16/191099 RPT#: [id number] DC DATE:04/13/19 STATUS: DIS IN [facility] [address] [place] [address] END OF REPORT
--- NOTE | 2019-04-16 12:28 | OP ---
PATIENT NAME: MELIDA RAMOS MEDICAL RECORD: [id number] :34 LOCATION:D.[facility] [address] ADMISSION DATE:04/08/19 SURGEON: RIKKI SCHROEDER MD DATE OF OPERATION: 04/10/2019 PREOPERATIVE DIAGNOSIS: Intertrochanteric fracture of the right hip. POSTOPERATIVE DIAGNOSIS: Intertrochanteric fracture of the right hip. PROCEDURE: Cephalomedullary fixation of right intertrochanteric fracture -- gamma nail. SURGEON: Rikki Schroeder MD INTRAOPERATIVE COMPLICATIONS: None. SUMMARY OF PATHOLOGIC FINDINGS: The patient had the intertrochanteric fracture consistent with preoperative radiographs. This was reduced anatomically with the fracture table and the short gamma nail was deployed. OPERATIVE SUMMARY IN DETAIL: After obtaining the appropriate preoperative orthopedic surgery consent as well as anesthetic consultation, evaluation and clearance, the patient was brought to the operating room and on his hospital bed he was given adequate general anesthesia. He was then placed on the fracture table. On the fracture table, the left leg was placed in a well hardy, right leg was placed in the traction boot after the patient had been appropriately secured to the operative table. Under direct fluoroscopic visualization, reduction maneuver was performed with the fracture table to anatomic position. The hip was then prepped and draped in routine sterile fashion. Incision was made at the tip of the greater trochanter. An awl was utilized to make an opening. A ball-tipped guidewire was passed. Proximal reaming was then followed by insertion of the nail to the appropriate depth as seen on AP and lateral planes. The guide pin was then placed using AP and lateral plane image to the appropriate center-center position. The compression screw was then deployed, derotational pin was deployed. This was followed by compression of the fracture. Distal interlocking screw was then put into place. Wound was irrigated and closed with #1 Vicryl followed by skin angelica. Sterile dressings were applied. The patient was awakened and taken to the recovery room in stable condition. All final needle and sponge counts were correct. TRANSINT:[id number] Voice Confirmation ID: [id number] DOCUMENT ID: [id number] RIKKI SCHROEDER MD at 1228 CC: [id number] DICTATION DATE: 04/16/19 1057 WASHING MACHINE OPERATOR: 04/16/19 1114 DIS IN 04/13/19 [facility] [address] [place] [address]
== END 2019-04-13 15:07 | DRG 481 ==
LOC: D.ER 16:18 → D.MS 18:50
PROVIDERS: Family Medicine; Orthopaedic Surgery; ADMIT Internal Medicine Nephrology; ATTEND Internal Medicine Nephrology
PROC: 0QS606Z Reposition Right Upper Femur with Intramedullary Internal Fixation Device, Open Approach (ICD-10-PCS; principal; 2019-04-10 07:30)
DX: S72.141A Displaced intertrochanteric fracture of right femur, initial encounter for closed fracture (principal); I48.20 Chronic atrial fibrillation, unspecified; E46 Unspecified protein-calorie malnutrition; Z68.1 Body mass index [BMI] 19.9 or less, adult; D62 Acute posthemorrhagic anemia; W19.XXXA Unspecified fall, initial encounter; Y93.H2 Activity, gardening and landscaping; Y92.096 Garden or yard of other non-institutional residence as the place of occurrence of the external cause; R00.2 Palpitations; I49.9 Cardiac arrhythmia, unspecified; M19.90 Unspecified osteoarthritis, unspecified site; N40.0 Benign prostatic hyperplasia without lower urinary tract symptoms; E03.9 Hypothyroidism, unspecified